=== PATIENT | male | born 1985 | race Caucasian/White ===

== ENCOUNTER 2017-04-08 15:35 | Emergency (ER) | payer OTHER ==
[~2017-04-08] VITALS: Ht 157.5 cm; Wt 61.9 kg
[2017-04-08 20:04] LABS: HEMATOCRIT 45.8 % (38.0-50.0); MCH 31.5 PG (29.0-34.0); MCHC 33.6 G/DL (30.0-36.0); MCV 93.7 FL (86-99); MEAN PLAT.VOLUME 10.8 uM^3 (9.0-12.4); PLATELET COUNT 204 K/uL (156-360); RBC DIS.WIDTH-SD 44.6 % (39-53); RED BLOOD COUNT 4.89 M/uL (4.00-5.50)
[2017-04-08 20:26] LABS: CHLORIDE 106 mEq/L (99-109); POTASSIUM 4.6 mEq/L (3.7-5.4); SODIUM 140 mEq/L (136-147)
[2017-04-08 20:28] LABS: GLUCOSE 83 mg/dL (70-99)
[2017-04-08 20:29] LABS: ANION GAP 11 MEQ/L (2-14)
[2017-04-08 20:31] LABS: GFR ESTIMATE (CALCULATED) > 59 mL/min/
[2017-04-08 20:32] LABS: UREA NITROGEN (BUN) 21 mg/dL (9-23)
[2017-04-08 20:34] LABS: CREATINE KINASE 812 IU/L (1-294)
[2017-04-08] MEDS ORDERED: SILVADENE20 GM TP (23:10)
[2017-04-08] MEDS ORDERED: ULTRAM50 MG PO (23:10)
[2017-04-08 23:33] VITALS: BP 116/81
== END 2017-04-08 23:10 | disposition home or self-care (01) ==
LOC: EME 15:35
PROVIDERS: Physician Assistant
DX: M62.82 Rhabdomyolysis (principal); S09.90XA Unspecified injury of head, initial encounter; T20.02XA Burn of unspecified degree of lip(s), initial encounter; T23.002A Burn of unspecified degree of left hand, unspecified site, initial encounter; T23.001A Burn of unspecified degree of right hand, unspecified site, initial encounter; Y04.8XXA Assault by other bodily force, initial encounter; Y07.9 Unspecified perpetrator of maltreatment and neglect; F17.200 Nicotine dependence, unspecified, uncomplicated
CPT/HCPCS: 70450; 80048; 81003; 82550; 85027; 99281; 99285; J7030